=== PATIENT | female | born 2000 | race Caucasian/White ===

== ENCOUNTER 2023-04-30 10:39 | Emergency (ER) | payer BC ==
[~2023-04-30] VITALS: Ht 175.3 cm; Wt 90.7 kg
[2023-04-30 10:40] VITALS: BP_SYST 135; PULSE 80; RESP 15; TEMP 97.2; O2SAT 100
[2023-04-30 12:10] LABS: BASOPHILS % (AUTO) 0.3 % (0.0-2.0); EOSINOPHILS % (AUTO) 0.1 % (0.0-4.0); HEMOGLOBIN 13.3 g/dL (12.0-16.0); LYMPHOCYTES # (AUTO) 1.1 K/uL (1.0-5.5); LYMPHOCYTES % (AUTO) 14.6 % (20.5-51.5); MEAN CORPUSCULAR HEMOGLOBIN 28 pg (27-31); MEAN CORPUSCULAR HGB CONC 33 % (32-36); MEAN CORPUSCULAR VOLUME 83 fL (79.0-98.0); MONOCYTES # (AUTO) 0.4 K/uL (0.0-1.0); MONOCYTES % (AUTO) 4.6 % (1.7-9.3); NEUTROPHILS # (AUTO) 6.3 K/uL (1.8-7.7); NEUTROPHILS % (AUTO) 80.4 % (40.0-70.0); PLATELET COUNT (AUTO) 232 K/uL (130-430); RED BLOOD CELL COUNT(AUTO) 4.81 MIL/uL (4.2-6.2); RED CELL DISTRIBUTION WIDTH 14.5 % (9.0-15.0); WHITE BLOOD COUNT (AUTO) 7.8 K/uL (4.8-10.8)
[2023-04-30 12:29] LABS: CALCIUM 9.1 mg/dL (8.4-11.0); CREATININE 0.9 mg/dL (0.55-1.30)
[2023-04-30 12:34] LABS: ALBUMIN 3.6 g/dL (3.4-4.8); TOTAL BILIRUBIN 0.7 mg/dL (0.0-1.0)
[2023-04-30] MEDS ORDERED: MECL-225 PO (13:11)
[2023-04-30 13:14] VITALS: BP_SYST 135; PULSE 80; RESP 15; TEMP 97.2; O2SAT 100
== END 2023-04-30 13:13 | disposition home or self-care (01) ==
LOC: SED 10:39
DX: R42 Dizziness and giddiness (principal); Z79.899 Other long term (current) drug therapy
CPT/HCPCS: 36415; 80053; 81025; 85025; 93005; 99284